=== PATIENT | male | born 1955 | race Native Hawaiian/Other Pacific Islander ===

== ENCOUNTER 2017-08-18 13:02 | Emergency (ER) | payer OTHER ==
[2017-08-18] MEDS ORDERED: Lactated Ringer's 500 ML IV SCH (14:00)
--- NOTE | 2017-08-18 14:01 | ED PDOC ---
Syncope/Near Syncope/Dizziness Time Seen by Provider: 08/18/17 13:44 Chief Complaint (Nursing): Dizziness/Lightheaded Chief Complaint (Provider): Dizziness History Per: Patient History/Exam Limitations: no limitations Onset/Duration Of Symptoms: Days (x2 weeks) Current Symptoms Are (Timing): Intermittent Episodes Associated Symptoms Preceding Syncopal Episode: No Predromal Symptoms (Sudden Onset) Seizure Or Post-ictal Symptoms: None Fall Associated With With Symptoms: No Additional Complaint(s): Leif Gerardo is a 61 year old male, with a past medical history of hypertension and hypercholesterolemia, who presents to the emergency department complaining of intermittent episodes of dizziness onset for x2 weeks. Patient states symptoms resolve x2 hrs after taking Xanax. He saw Dr. Erickson x2 weeks ago, had an MRI done but doesn't know results yet, and has an appointment scheduled on Aug 31. Patient has been compliant with blood pressure medications. He denies room spinning sensation, fever, chills, shortness of breath, chest pain, headache, numbness or weakness. No further medical complaints. PMD: Ryan Erickson Past Medical History Reviewed: Historical Data, Nursing Documentation, Vital Signs Vital Signs: Last Vital Signs Temp 98.0 F 08/18/17 13:22 Pulse 80 08/18/17 13:22 Resp 16 08/18/17 13:22 BP 130/90 08/18/17 13:22 Pulse Ox 95 08/18/17 13:22 - Medical History PMH: Anxiety, HTN, Hypercholesterolemia - Surgical History Surgical History: No Surg Hx - Family History Family History: States: Unknown Family Hx - Home Medications Home Medications: Ambulatory Orders Medication Instructions Recorded Allopurinol [Zyloprim] 300 mg PO DAILY 03/14/15 Alprazolam [Xanax] 0.25 mg PO PRN PRN 03/14/15 Dutasteride [Avodart] 0.5 mg SL DAILY 03/14/15 Losartan [Cozaar] 100 mg PO DAILY 03/14/15 Metoprolol Tartrate [Lopressor] 100 mg PO BID 03/14/15 Tamsulosin [Flomax] 0.4 mg PO DAILY 03/14/15 - Allergies Allergies/Adverse Reactions: Allergies Allergy/AdvReac Type Severity Reaction Status Date / Time No Known Allergies Allergy Verified 03/13/15 20:38 Review of Systems ROS Statement: Except As Marked, All Systems Reviewed And Found Negative Constitutional: Negative for: Fever, Chills Cardiovascular: Negative for: Chest Pain Respiratory: Negative for: Shortness of Breath Neurological: Positive for: Dizziness. Negative for: Weakness, Numbness, Headache Physical Exam - Reviewed Nursing Documentation Reviewed: Yes Vital Signs Reviewed: Yes - Physical Exam Appears: Positive for: Well, Non-toxic, No Acute Distress Head Exam: Positive for: ATRAUMATIC, NORMAL INSPECTION, NORMOCEPHALIC Skin: Positive for: Normal Color, Warm, Dry Eye Exam: Positive for: Normal appearance, EOMI, PERRL ENT: Positive for: Normal ENT Inspection. Negative for: Nasal Congestion Neck: Positive for: Painless ROM, Supple Cardiovascular/Chest: Positive for: Regular Rate, Rhythm. Negative for: Murmur Respiratory: Positive for: Normal Breath Sounds (clear b/l). Negative for: Respiratory Distress Gastrointestinal/Abdominal: Positive for: Normal Exam, Soft. Negative for: Tenderness, Guarding, Rebound Back: Positive for: Normal Inspection. Negative for: L CVA Tenderness, R CVA Tenderness, Vertebral Tenderness Extremity: Positive for: Normal ROM. Negative for: Tenderness, Deformity, Swelling Neurologic/Psych: Positive for: Alert, career discovery teacher II-XII, Oriented (x3), Gait (steady) . Negative for: Motor/Sensory Deficits, Aphasia, Facial Droop - Laboratory Results Result Diagrams: 08/18/17 15:18 08/18/17 15:18 Interpretation Of Abn Labs: no acute - ECG O2 Sat by Pulse Oximetry: 95 (RA) Pulse Ox Interpretation: Normal - CT Scan/US ct Other Rad Studies (CT/US): Read By Radiologist Other Rad Interpretation: no acute - Progress ED Course And Treament: 1831: Spoke with Dr. Erickson. Pt. well known to him. Had MRI already and no acute findings. Wants pt. to fu with him tomorrow. Dc. AAOx3. Pain free. Tolerated PO. No dizziness and ambulated with no issues. Medical Decision Making Medical Decision Making: Initial Impression: dizziness Initial Plan: --Head w/o contrast [CT] --EKG --CMP --Troponin I --CBC w/ differential --PTT --PT --Antivert 25mg PO --Lactated ringers 500 ml IV 100 mls/hr --Reevaluation 14:[address] FINDINGS: HEMORRHAGE: No acute parenchymal, subarachnoid or extra-axial hemorrhage. BRAIN: No evidence of large acute infarct. Tiny densities both the basal nuclei likely representing small bilateral basal nuclei calcifications. . No obvious parenchymal nor extra-axial mass or collection is identified on this noncontrast study. Minor vascular calcifications both carotid siphons. VENTRICLES: No obstructive hydrocephalus. CALVARIUM: There are no acute calvarial fractures. PARANASAL SINUSES: Minimal mucosal thickening seen within a few ethmoid air cells extending superiorly into the frontal sinus MASTOID AIR CELLS: Unremarkable as visualized. No inflammatory changes. OTHER FINDINGS: Bilateral pinna calcifications again seen, likely related to old trauma IMPRESSION: No acute intracranial hemorrhage. Scribe Attestation: Documented by Tate Mahajan, acting as a scribe for Fransicso Fletcher MD Provider Scribe Attestation: All medical record entries made by the Scribe were at my direction and personally dictated by me. I have reviewed the chart and agree that the record accurately reflects my personal performance of the history, physical exam, medical decision making, and the department course for this patient. I have also personally directed, reviewed, and agree with the discharge instructions and disposition. Disposition - Clinical Impression Clinical Impression: Dizziness - Patient ED Disposition Is Patient to be Admitted: No Counseled Patient/Family Regarding: Studies Performed, Diagnosis, Need For Followup - Disposition Referrals: Ryan Erickson MD [Family Provider] - 08/19/17 Disposition: Routine/Home Disposition Time: 18:33 Condition: STABLE Additional Instructions: Return if not better in 3 days. Instructions: Dizziness, Nonvertigo, (DC)
--- NOTE | 2017-08-18 14:42 | CT ---
PROCEDURE: CT scan brain dated 08/18/2017. HISTORY: Headache. COMPARISON: Comparison made with prior CT scan of the brain dated 03/13/2015 TECHNIQUE: Axial computed tomography images were obtained through the head/brain without intravenous contrast. Radiation dose: Total exam DLP = 1003.56 mGy-cm. This CT exam was performed using one or more of the following dose reduction techniques: Automated exposure control, adjustment of the mA and/or kV according to patient size, and/or use of iterative reconstruction technique. FINDINGS: HEMORRHAGE: No acute parenchymal, subarachnoid or extra-axial hemorrhage. BRAIN: No evidence of large acute infarct. Tiny densities both the basal nuclei likely representing small bilateral basal nuclei calcifications. . No obvious parenchymal nor extra-axial mass or collection is identified on this noncontrast study. Minor vascular calcifications both carotid siphons. VENTRICLES: No obstructive hydrocephalus. CALVARIUM: There are no acute calvarial fractures. PARANASAL SINUSES: Minimal mucosal thickening seen within a few ethmoid air cells extending superiorly into the frontal sinus MASTOID AIR CELLS: Unremarkable as visualized. No inflammatory changes. OTHER FINDINGS: Bilateral pinna calcifications again seen, likely related to old trauma IMPRESSION: No acute intracranial hemorrhage.
[2017-08-18 15:35] LABS: BASO # 0.1 K/uL (0.0-0.2); BASO % 1.1 % (0.0-2.0); EOS # 0.2 K/uL (0.0-0.7); EOS % 3.8 % (0.0-4.0); HEMOGLOBIN 14.7 g/dL (12.0-18.0); LYMPH # 2.1 K/uL (1.0-4.3); LYMPH % 31.8 % (20.0-40.0); MEAN CELL VOLUME 89.7 fl (80.0-94.0); MEAN CORPUSCULAR HEMOGLOBIN 29.7 pg (27.0-31.0); MEAN CORPUSCULAR HGB CONC 33.1 g/dL (33.0-37.0); MONO # 0.8 K/uL (0.0-0.8); NEUT # 3.4 K/uL (1.8-7.0); NEUT % 51.3 % (50.0-75.0); NRBC % 0.1 % (0.0-0.0); RBC 4.94 Mil/uL (4.40-5.90); RED CELL DISTRIBUTION WIDTH 13.7 % (11.5-14.5); WHITE BLOOD COUNT 6.6 K/uL (4.8-10.8)
[2017-08-18 15:40] VITALS: RESP 18
[2017-08-18 15:46] LABS: ALB/GLOB RATIO 1.1 (1.0-2.1); ALBUMIN 4.1 g/dL (3.5-5.0); ALT/SGPT 47 U/L (21-72); AST/SGOT 38 U/L (17-59); BLOOD UREA NITROGEN 20 mg/dl (9-20); CALCIUM 9.3 mg/dL (8.4-10.2); GFR AFRICAN-AMERICAN > 60; GFR NON-AFRICAN AMERICAN > 60
[2017-08-18 16:21] LABS: PARTIAL THROMBOPLASTIN TIME 31.6 Seconds (25.6-37.1); PROTHROMBIN TIME 11.2 Seconds (9.8-13.1)
[2017-08-18 18:55] VITALS: BP 118/75; PULSE 84; TEMP 97.9; O2SAT 100
--- NOTE | 2017-08-19 19:13 | CARD ---
APPROVED REPORT EKG Measurement Heart [id number] <Conclusion> Normal sinus rhythm Nonspecific T wave abnormality Abnormal ECG
== END 2017-08-18 18:58 | disposition home or self-care (01) ==
LOC: H.ER 13:02
DX: R42 Dizziness and giddiness (principal); E78.00 Pure hypercholesterolemia, unspecified; F41.9 Anxiety disorder, unspecified; I10 Essential (primary) hypertension
CPT/HCPCS: 70450; 80053; 84484; 85025; 85610; 85730; 93005; 99284; J7120

== ENCOUNTER 2018-07-14 06:52 | Day surgery (SDC) | payer OTHER ==
[2018-07-03 11:58] VITALS: BMI 24.0
[2018-07-14] MEDS ORDERED: ceFAZolin IV 1 gm in Dextrose 2 GM/100 ML BAG IVPB ONE (08:18)
[2018-07-14] MEDS ORDERED: Lidocaine 1% w Epi 1:100,000 Inj ONE (08:18)
[2018-07-14] MEDS ORDERED: EPINEPHrine 1:1000 Nasal Sol(30mL) ONE (08:19)
--- NOTE | 2018-07-14 09:04 | CP.SDSHP ---
Same Day Surgery H & P - History Proposed Procedure: Left shoulder arthroscopy, partial rotator cuff repair, labral repair, acromioplasty, synovectomy, related procedures Pre-Op Diagnosis: Left shoulder full thickness traumatic RC tear. SLAP tear. synovitis - Previous Medical/Surgical History Cardiac: Hypertension Previous Surgical History: rectal surgery - Allergies Allergies: Allergies No Known Allergies Allergy (Verified 03/13/15 20:38) - Physical Exam Vital Signs: Vital Signs 07/14/18 07/14/18 08:53 08:58 Temperature 97.9 F Pulse Rate 64 65 Respiratory 18 Rate Blood Pressure 136/97 H O2 Sat by Pulse 97 Oximetry Mental Status: Alert & Oriented x3 Heart: WNL Lungs: WNL GI: WNL (medical clearance Dr. Erickson on chart) - {Optional Preform as Required} Ortho: Other (limited ROM left shoulder, sensation intact, +radial pulse) Other Pertinent Findings: MRI and labs on chart, reviewed - Impression Impression: 62M with left shoulder rotator cuff tear and findings as above for arthroscopy Pt. Evaluated Today:Candidate for Anesthesia & Procedure: Yes - Date & Time Date: 07/14/18 Time: 09:04 Short Stay Discharge - Short Stay Discharge Admitting Diagnosis/Reason for Visit: S46.811, M75.42, M65.812 Disposition: HOME/ ROUTINE Past Patient History - Infectious Disease Hx of Infectious Diseases: None - Past Medical History & Family History Past Medical History?: Yes Past Family History: Reviewed and not pertinent - Past Social History Smoking Status: Former Smoker - CARDIAC Hx Cardiac Disorders: Yes Hx Hypertension: Yes - PULMONARY Hx Respiratory Disorders: No - NEUROLOGICAL Hx Neurological Disorder: No - HEENT Hx HEENT Problems: Yes Other/Comment: dry eye - RENAL Hx Chronic Kidney Disease: No - ENDOCRINE/METABOLIC Hx Endocrine Disorders: No - HEMATOLOGICAL/ONCOLOGICAL Hx Blood Disorders: No - INTEGUMENTARY Hx Dermatological Problems: No - MUSCULOSKELETAL/RHEUMATOLOGICAL Hx Musculoskeletal Disorders: No Hx Arthritis: Yes Hx Gout: Yes Other/Comment: hx of gout - GASTROINTESTINAL Hx Gastrointestinal Disorders: No - GENITOURINARY/GYNECOLOGICAL Hx Genitourinary Disorders: No - PSYCHIATRIC Hx Emotional Abuse: No Hx Physical Abuse: No - SURGICAL HISTORY Hx Surgeries: Yes Other/Comment: 2010 Cyst removed from rectum - ANESTHESIA Hx Anesthesia: Yes Hx Anesthesia Reactions: No Hx Malignant Hyperthermia: No Has any member of the family had a problem w/ anesthesia?: No
[2018-07-14] MEDS ORDERED: Lactated Ringer's 1,000 ML IV ONE ×2 (09:23→11:27)
[2018-07-14] MEDS ORDERED: Propofol 10 mg/ml Inj (20 ML) ONE (09:49)
[2018-07-14] MEDS ORDERED: Midazolam 2 MG/2 ML VIAL ONE (09:49)
[2018-07-14] MEDS ORDERED: Lidocaine 1% 5ml Abboject ONE (09:49)
[2018-07-14] MEDS ORDERED: Rocuronium 10 mg/ml (5 ml) ONE (09:49)
[2018-07-14] MEDS ORDERED: Lidocaine 4% (Laryng-O-Jet) Kit MM ONE (09:49)
[2018-07-14] MEDS ORDERED: EPINEPHrine 1 mg/ml (1:1000) Inj ONE ×2 (09:52→09:53)
[2018-07-14] MEDS ORDERED: Ropivacaine 0.5% 30ML IV ONE (09:53)
[2018-07-14] MEDS ORDERED: Succinylcholine 200 mg/10 ml Inj IV ONE (09:54)
[2018-07-14] MEDS ORDERED: Sodium Chloride 0.9% 10 ML IV ONE (10:38)
[2018-07-14] MEDS ORDERED: ePHEDrine 50 mg/ml Inj ONE (10:38)
[2018-07-14] MEDS ORDERED: Lidocaine 1% w Epi 1:100,000 Inj INJ ONE (11:08)
[2018-07-14] MEDS ORDERED: Oxycodone/Acetaminophen 5/325 mg Tab PO PRN (12:04)
--- NOTE | 2018-07-14 12:39 | PCM.SURG1 ---
Surgeon's Initial Post Op Note - Surgeon's Notes Surgeon: Bindu Middleton MD Coagulating Bath Mixer: Madeline Navarrete PA-C Type of Anesthesia: General Endo Pre-Operative Diagnosis: Left shoulder complete retracted RTC tear Operative Findings: see op report Post-Operative Diagnosis: same as pre-op dx Operation Performed: Left shoulder arthroscopy, double row rotator cuff repair, subacromial decompression Specimen/Specimens Removed: none Estimated Blood Loss: EBL {In ML}: 4 Date of Surgery/Procedure: 07/14/18 Time of Surgery/Procedure: 11:00
[2018-07-14] MEDS ORDERED: HYDROmorphone 0.5 mg/0.5 ml ISec IVP PRN (12:44)
[2018-07-14] MEDS ORDERED: Lactated Ringer's 1,000 ML IV SCH (12:45)
--- NOTE | 2018-07-14 12:49 | PCM.ANESB1 ---
Interscalene Block - Brachial Plexus Date of Procedure: 07/14/18 Anesthesiologist: Dr. Kyle Pre-Procedure Diagnosis: Torn rotator cuff left shoulder Post-Procedure Diagnosis: Torn rotator cuff left shoulder Procedure Performed: Interscalene Block of Brachial Plexus Left - Procedure Interscalene Block of Brachial Plexus: This procedure was explained to the patient that it is for post-operative pain management. Consent was obtained after a thorough discussion with the patient regarding the benefits and possible complications of local anesthetic block of the Brachial Plexus at the Interscalene area. The patient was brought to the Operating Room and standard monitors were applied. Time out was held with the circulating nurse to confirm the correct surgery and appropriate block. After applying Oxygen by nasal cannula and administering IV Sedation, the patient's head was gently rotated away from the left operative shoulder and the anterior scalene groove was carefully palpated. The ultrasound transducer was then applied to the skin in the transverse plane and the brachial plexus was visualized lateral to the carotid artery and in between the anterior and middle scalene muscles. After identification,the anterior lateral portion of the neck was prepped with Betadine solution three times and Lidocaine 1% was injected subcutaneously for topical analgesia. At this point, a # 22 gauge Stimuplex 2 inches insulated needle was inserted into the interscalene groove and directed in a caudal and midline direction. The needle was inserted lateral to the ultrasound transducer in-plane towards the brachial plexus in a [id number] direction. Needle advancement was performed carefully under direct ultrasound visualization. Nerve stimulator was used and twitched of the affected extremity including the hand brachialis muscles, biceps and the deltoid was obtained at a current of 0.3MA. After repeated negative aspiration, 5cc of 0.5% Ropivacaine were injected and this was followed with 15 cc of 0.5% Ropivacaine. Under ultrasound guidance the local anesthetics were observed surrounding the roots of the brachial plexus. The needle was removed intact and sterile dressing was applied. The patient had stable vital signs, was conscious and in no apparent distress. The patient tolerated the interscalene block of the bracheal plexus well with stable vital signs and was prepared for subsequent surgery.
[2018-07-14 14:58] VITALS: O2SAT 97
[2018-07-14 16:01] VITALS: BP 138/79; PULSE 68; RESP 18; TEMP 98
--- NOTE | 2018-07-14 18:29 | OP ---
PROCEDURE DATE: 07/14/2018 ATTENDING PHYSICIAN: Bindu Middleton MD DATA CENTER MANAGER: Madeline Navarrete PA-C PREOPERATIVE DIAGNOSES: 1. 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 2. Synovitis. 3. Impingement. POSTOPERATIVE DIAGNOSES: 1. Left shoulder synovitis. 2. Full thickness supraspinatus and infraspinatus chronic retracted tear. 3. Capsular adhesions. 4. Impingement. 5. Colitis. 6. Grade 2 chondromalacia humeral head. PROCEDURE: 1. Left shoulder arthroscopic double row rotator cuff repair with margin convergence. 2. Anterior capsular lysis of adhesions. 3. Complete synovectomy. 4. Subacromial decompression with acromioplasty. 5. Chondroplasty of humeral had. ANESTHESIA: General interscalene block. ESTIMATED BLOOD LOSS: 10 mL. SPECIMENS: None. COMPLICATIONS: None. CLOSURE: Primary. FLUIDS: See anesthesia sheet. ANTIBIOTICS: See anesthesia sheet. INDICATIONS: After failing a course of nonoperative therapy, the patient elected to undergo the above procedures. In the office the risks and possible complications of the shoulder arthroscopy were discussed in detail with the patient. These risks include, but are not limited to, continued pain, lack of motion, infection, vascular injury, and nerve injury including axillary nerve dysfunction, reflex sympathetic dystrophy, compartment syndrome, limb loss, and . The patient expressed an understanding of the risks and possible benefits of the procedure, and was also made aware of the alternatives to surgery. An informed consent was obtained, and was checked immediately preop. Procedure 1: The patient was correctly identified in the holding area and the left shoulder was marked with the surgeon's initials. The patient was transported to the operating room and placed in the supine position and general anesthesia and regional interscalene block was used. A preoperative orthopedic examination revealed a passive range of motion of 260 degrees of forward elevation, 50 degrees of external rotation, and 130 degrees of abduction. Stability examination revealed no instability. Procedure 2: The patient was then placed in a beach chair position utilizing the beach chair positioning device. The patient's head was stabilized and the indicated upper extremity was prepped and draped in the standard surgical fashion. The anatomic structures were outlined with a skin marker, and 1% lidocaine with epinephrine was injected into the posterior, anterior, and lateral portal areas. A #21-gauge spinal needle was placed in the glenohumeral joint from the posterior portal and 10 mL of sterile saline was injected into the glenohumeral joint. Return of fluid indicated correct needle placement into the joint. The needle was then withdrawn and a #11 blade was used to make a 1-cm incision at the posterior portal site. Next, the arthroscopic blunt trocar was inserted into the glenohumeral joint. A #21-gauge spinal needle was placed through the anterior rotator interval, and the anterior portal was made with a #11 blade after the spinal needle was withdrawn. A 7-mm cannula was then inserted after the skin incision was made and the arthroscopic probe was then used to examine the internal structures of the glenohumeral joint. With the shoulder in abducted and externally rotated position, the articular surface of the rotator cuff was visualized. The arthroscope and probe were then switched from posterior to anterior. The posterior labrum, posterior capsule, and biceps anchor reflection was then inspected with the arthroscope in the anterior portal position. Examination of the glenohumeral joint revealed: 1. Extensive synovitis. 2. Capsular adhesions. 3. Complete chronic retracted supraspinatus and infraspinatus tear. 4. Degenerative labral tear. Using the probe, the labrum was circumferentially assessed for tear. Tears were note at anterior and posterior superior labrum. Using the 4.0 motorized shaver and radiofrequency probe, the torn edges of the labrum were debrided until stable rim, preventing any further propagation. The radiofrequency device was introduced through the anterior portal and a radiofrequency anterior capsular rotator interval lysis of adhesions was performed. The anterior capsule was released to optimize range of motion. The radiofrequency device was used to provide hemostasis during this procedure. After the lysis of adhesions, passive range of motion measured 180 degrees of forward elevation, 60 degrees of external rotation, and 150 degrees of abduction. The full radius shaver was used to mechanically debride loose chondral edges of the side of the humeral head, to a stable border. Extreme care was taken to not disrupt the adjacent chondral surface. The edge of the debrided area was probed to ensure chondral stability. Excessive glenohumeral synovitis was cleared with a 4.0 mm full radius shaver. The hypertrophic, erythematous synovium was resected. Hemostasis was maintained with the radiofrequency device. At this point, the arthroscope was withdrawn from the glenohumeral joint and subacromial space was then entered using a blunt trocar. Gentle resistance sweeping against the coracoacromial ligament confirmed proper placement of the sheath and the arthroscope was inserted. A 1-cm incision was made at the inferolateral acromial area to create the lateral portal. Examination of the subacromial space revealed: 1. Bursitis. 2. Impingement. Visualization of the subacromial space was difficult due to excessive bursitis. A bursectomy was performed using a combination of radiofrequency device as well as a 4.0-mm full radius motorized shaver. The soft tissue on the undersurface of the acromion was debrided utilizing the 4.0-mm full radius shaver and the radiofrequency device was used for hemostasis. At this point, the coracoacromial ligament was released with the radiofrequency device and the acromial branch of the thoracoacromial artery was coagulated with the same instrument. Subacromial decompression was performed with a 4.0-mm conical mike using both the medial portal and the "cutting-block" precision acromioplasty technique from the posterior portal. The undersurface of the acromion was resected to a flat, smooth surface to allow unrestricted excursion of the rotator cuff. After adequate subacromial decompression, attention was then turned to the rotator cuff tear, which was easily visualized after adequate bursectomy had been performed. An auxiliary lateral portal was placed 2 cm posterior to the original lateral portal, after a correct "-man's angle" was determined using a transdeltoid 21 gauge spinal needle. Arthroscopic soft tissue releases were performed using an elevator at the coracohumeral ligament insertion and superior glenoid to free up the rotator cuff to provide adequate excursion to support a repair to the greater tuberosity. Next, the greater tuberosity was gently debrided with a combination of the 4.0 mm straight shaver and radiofrequency device, and the bone was denuded to a bleeding surface using the 4.0-mm mike. The lateral margin of the rotator cuff tear was debrided to a smooth and stable tendon surface using the 4.0-mm shaver. Two 4.5-mm Arthrex corkscrew suture anchors were placed with the proper "-man's angle" into the greater tuberosity, and a mattress suture from each anchor was passed through supraspinatus 10 mm medial to the torn edge. These anchors formed the medial row of the double row repair. The arm was abducted to 70 degrees, and the leading edge of the cuff was drawn to its proper insertion on the greater tuberosity. The #2 FiberWire mattress sutures were tied with standard arthroscopic knot tying techniques - Ihsan knots and half hitches using a knot pusher. The remaining sutures were secured to the tuberosity with two 4.5-mm PushLock absorbable anchors, which were placed with standard technique into the lateral aspect of the greater tuberosity approximately 1 cm lateral to the medial row anchors. One suture strand from each knot was crossed to the diagonal PushLock anchor along with the suture strand from the corresponding anchor directly medial. This linking of the medial and lateral row formed a "suture bridge" rotator cuff repair. The ends of the remaining sutures were then cut. The shoulder was put through a passive ROM, and the rotator cuff repair was noted to be stable through a ROM of 130/50. No prominence of the suture knots or of rotator cuff tissue was noted to impinge during abduction and internal rotation. The subacromial space was then irrigated with sterile saline, and closure was instituted with sutures. A dressing was placed consisting of Xeroform, 4x4's, ABD pads, and tape. The patient was placed in a sling with an ABD pad in the axilla. The patient was then placed in a supine position and extubated without incident. The patient was transferred to the recovery room in stable condition, having tolerated the procedure well. Postoperatively, the patient will be maintained in an abduction sling, also provided with my rehab protocol, defining the restriction and sling use for 6-8 weeks. Followup in 6 to 8 weeks. The sponge and needle count at the close of the case was correct. The attending surgeon was scrubbed and present for all the critical portions of the case, including all of the intra-articular arthroscopic procedures. During this procedure, I was assisted by Madeline Navarrete PA-C, who assisted in positioning the patient on the operating room table as well as transferring the patient from the operating room table to the recovery room stretcher. In addition, Madeline Navarrete PA-C, assisted me during the actual operative procedure by positioning the patient's extremity to allow for easier arthroscopic access to all areas of the joint. The presence of Madeline Navarrete PA-C, as my operative veterinary assistant, was medically necessary to ensure the utmost safety of the patient in the pre, intra-, and postoperative periods. Bindu Middleton MD
== END 2018-07-14 16:20 | disposition home or self-care (01) ==
LOC: H.OPSURG 06:52
PROVIDERS: ATTEND Orthopaedic Surgery
DX: M65.812 Other synovitis and tenosynovitis, left shoulder (principal); K52.9 Noninfective gastroenteritis and colitis, unspecified; Z87.891 Personal history of nicotine dependence; I10 Essential (primary) hypertension; M75.102 Unspecified rotator cuff tear or rupture of left shoulder, not specified as traumatic
CPT/HCPCS: 29823; 29826; 29827; 87070; J0171; J0330; J0690; J2250; J2704; J2765; J3010; J7120

== ENCOUNTER 2018-10-31 07:12 | Day surgery (SDC) | payer MEDICARE, OTHER ==
[2018-10-31 08:27] VITALS: BMI 23.6
[2018-10-31 08:53] VITALS: RESP 18
[2018-10-31] MEDS ORDERED: Lidocaine 1% w Epi 1:100,000 Inj ONE (11:39)
[2018-10-31] MEDS ORDERED: EPINEPHrine 1 mg/ml (1:1000) Inj ONE ×2 (11:39→15:22)
[2018-10-31] MEDS ORDERED: Bupivacaine 0.5% Inj(30mL) ONE (11:39)
[2018-10-31] MEDS ORDERED: Ropivacaine 0.5% 30ML IV ONE (11:57)
[2018-10-31] MEDS ORDERED: Propofol 10 mg/ml Inj (20 ML) ONE (11:58)
[2018-10-31] MEDS ORDERED: Midazolam 2 MG/2 ML VIAL ONE (11:58)
[2018-10-31] MEDS ORDERED: ePHEDrine 50 mg/ml Inj ONE (12:35)
[2018-10-31] MEDS ORDERED: Dexamethasone 4 mg/1 ml ONE (14:31)
--- NOTE | 2018-10-31 14:34 | PCM.ANESB1 ---
Interscalene Block - Brachial Plexus Date of Procedure: 10/31/18 Anesthesiologist: lFaco Pre-Procedure Diagnosis: Left rotator cuff tear Post-Procedure Diagnosis: Left rotator cuff tear Procedure Performed: Interscalene Block of Brachial Plexus Left - Procedure Interscalene Block of Brachial Plexus: This procedure was explained to the patient that it is for post-operative pain m anagement. Consent was obtained after a thorough discussion with the patient regarding the benefits and possible complications of local anesthetic block of the Brachial Plexus at the Interscalene area. The patient was brought to the Operating Room and standard monitors were applied. Time out was held with the circulating nurse to confirm the correct surgery and appropriate block. After applying Oxygen by nasal cannula and administering IV Sedation, the patient's head was gently rotated away from the operative shoulder and the anterior scalene groove was carefully palpated. The ultrasound transducer was then applied to the skin in the transverse plane and the brachial plexus was visualized lateral to the carotid artery and in between the anterior and middle scalene muscles. After identification,the anterior lateral portion of the neck was prepped with Betadine solution three times and Lidocaine 1% was injected subcutaneously for topical analgesia. At this point, a # 22 gauge Stimuplex 2 inches insulated needle was inserted into the interscalene groove and directed in a caudal and midline direction. The needle was inserted lateral to the ultrasound transducer in-plane towards the brachial plexus in a [id number] direction. Needle advancement was performed carefully under direct ultrasound visualization. Nerve stimulator was used and twitched of the affected extremity including the hand brachialis muscles, biceps and the deltoid was obtained at a current of _0.5_MA. After repeated negative aspiration,__20__cc of_0.5%_,_ropivicaine__were injected_. Under ultrasound guidance the local anesthetics were observed surrounding the roots of the brachial plexus. The needle was removed intact and sterile dressing was applied. The patient had stable vital signs, was conscious and in no apparent distress. The patient tolerated the interscalene block of the bracheal plexus well with stable vital signs and was prepared for subsequent surgery.
[2018-10-31] MEDS ORDERED: Lactated Ringer's 1,000 ML IV ONE (14:53)
[2018-10-31] MEDS ORDERED: HYDROmorphone 0.5 mg/0.5 ml ISec IVP PRN (16:05)
[2018-10-31] MEDS ORDERED: Dexamethasone 4 mg/1 ml IVP PRN (16:05)
--- NOTE | 2018-10-31 16:08 | PCM.SURG1 ---
Surgeon's Initial Post Op Note - Surgeon's Notes Surgeon: Bindu Middleton MD Torch Solderer: Madeline Navarrete PA-C; Iván Zambraon DPM Type of Anesthesia: General LMA Pre-Operative Diagnosis: Left shoulder RTC tear Operative Findings: see op report Post-Operative Diagnosis: same as pre-op dx Operation Performed: Left shoulder revision arthroscopy, SER w/allograft Specimen/Specimens Removed: none Estimated Blood Loss: EBL {In ML}: 5 Date of Surgery/Procedure: 10/31/18 Time of Surgery/Procedure: 13:00
[2018-10-31 18:25] VITALS: O2SAT 97
[2018-10-31 19:12] VITALS: BP 137/98; PULSE 93; TEMP 98
--- NOTE | 2018-11-01 21:42 | OP ---
PROCEDURE DATE: 10/31/2018 ATTENDING PHYSICIAN: Bindu Middleton MD BROOM BUILDER: Madeline Navarrete PA-C PREOPERATIVE DIAGNOSES: 1. Left shoulder re-tearing of the previous rotator cuff repair. 2. Synovitis. 3. Labral tear. POSTOPERATIVE DIAGNOSES: 1. Left shoulder extensive synovitis. 2. Re-tearing of rotator cuff tear. 3. Loose bodies. 4. Anterior, posterior and superior labral tear. 5. 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 6. Capsular adhesions. 7. Bursitis. PROCEDURES: 1. Left shoulder arthroscopic superior capsular reconstruction using allograft. 2. Complete synovectomy. 3. Pancapsular lysis of adhesions. 4. Removal of loose bodies. 5. Extensive labral debridement. 6. Chondroplasty of glenoid and humeral head. 7. Bursectomy. ANESTHESIA TYPE: General and interscalene block. ESTIMATED BLOOD LOSS: 5 mL. SPECIMEN: None. CLOSURE: Primary. FLUIDS: See anesthesia sheet. ANTIBIOTICS: See anesthesia sheet. COMPLICATIONS: None. INDICATIONS: After a detailed conversation, the patient elected to undergo the above procedures. The risks and possible complications of the shoulder arthroscopy were discussed in detail with the patient. These risks include, but are not limited to: continued pain, lack of motion, infection, vascular injury, and nerve injury including axillary nerve dysfunction, reflex sympathetic dystrophy, compartment syndrome, limb loss, and . The patient and/or responsible health proxy expressed an understanding of the risks and possible benefits of the procedure, and was also made aware of the alternatives to surgery. An informed consent was obtained, and was checked immediately pre-op. The patient was correctly identified in the holding area and operative shoulder was marked with the surgeon's initials. The patient was transported to the operating room and placed in the supine position and general anesthesia and regional interscalene block was used, exam under anesthesia. A preoperative orthopedic examination revealed a passive range of motion of 160 degrees of forward elevation, 50 degrees of external rotation, and 50 degrees of internal rotation. Stability examination revealed superior gait. The patient was securely placed in a positioning device. The patient's head was stabilized and the indicated upper extremity was prepped and draped in the standard surgical fashion. The anatomic structures were outlined with a skin marker, and 1% lidocaine with epinephrine was injected into the posterior, anterior, and lateral portal areas. A #11 blade was used to make a 1cm incision at the posterior portal site. Next, the arthroscopic blunt trocar was inserted into the glenohumeral joint. A #21-gauge spinal needle was placed through the anterior rotator interval, and the anterior portal was made with a #11 blade after the spinal needle was withdrawn. A working cannula was then inserted and the arthroscopic probe was used to examine the internal structures of the glenohumeral joint. With the shoulder abducted and externally rotated position, the articular surface of the rotator cuff was visualized. The arthroscope and probe were then switched from posterior to anterior. The posterior labrum, posterior capsule, and biceps anchor reflection was then inspected with the arthroscope in the anterior portal position. Examination of the glenohumeral joint revealed: 1. Extensive synovitis. 2. Diffuse labral tear. 3. Loose bodies. 4. Large, retracted, irreparable supraspinatus tear. 5. Grade II chondromalacia of the glenoid and the humeral head. Excessive glenohumeral synovitis was cleared with a 4.0 mm full radius shaver. The hypertrophic, erythematous synovium was resected, hemostasis was maintained with the radiofrequency device. Using the probe the labrum was circumferentially assessed for tear. Tears were note at superior, anterior, and posterior labrum. Using the motorized shaver and radiofrequency probe, the torn edges of the labrum were debrided until stable rim, preventing any further propagation. The radiofrequency device was introduced through the anterior portal and a radiofrequency anterior capsular rotator interval lysis of adhesions was performed. The anterior capsule was released to optimize range of motion. The radiofrequency device was used to provide hemostasis during this procedure. After the lysis of adhesions, passive range of motion measured 180 degrees of forward elevation, 70 degrees of external rotation, and internal rotation of 70 degrees of abduction. Motorized shaver was used to mechanically debride loose chondral edges of the humeral head and glenoid to a stable border. Extreme care was taken to not disrupt the adjacent chondral surface. The edge of the debrided area was probed to ensure chondral stability. At this point, multiple soft tissue loose bodies were noted in the axillary pouch and subscapularis recess areas. Using the aforementioned arthroscopic portals, loose bodies were removed with arthroscopic techniques including graspers and the shaver. Sub-Acromial Space: At this point, the arthroscope was withdrawn from the glenohumeral joint and subacromial space was then entered using a blunt trocar. Gentle resistance sweeping against the coracoacromial ligament confirmed proper placement of the sheath and the arthroscope was inserted. An incision was made at the inferolateral acromial area to create the lateral portal. Examination of the subacromial space revealed: 1. Extensive bursitis. 2. Retracted irreparable supraspinatus tear. Visualization of the subacromial space was difficult due to excessive bursitis. A bursectomy was performed using a combination of radiofrequency device as well as motorized shaver. Due to previous torn rotator cuff tear, it was reparable. A decision was made to proceed with superior capsular reconstruction. Using the high-speed shaver, extensive resection of remnant of rotator cuff torn tendon was performed to clear out the footprint. The anterior, superior, and posterior margins of the glenoid were debrided to the bleeding bed surface. Using a percutaneous technique, three Arthrex knotless suture anchors were placed in 10 o'clock, 12 o'clock, and 2 o'clock positions. Using the grasper, the previous implant and sutures were removed from the greater tuberosity. On the tuberosity, two additional Arthrex SwiveLock were placed lateral to the articular surface loaded with suture tape. Using the arthroscopic measuring device, the measurements of the graft were made, and on the back table, Arthrex ArthroFLEX dermal block was opened and based on the measurement, it was marked. Next, the suture limbs from the FiberTape and the SutureTaks were placed on the lateral cannula and loaded onto the graft. Using a large PassPort cannula, a graft was placed and tensioned and brought into the joint and secured on the glenoid using the knotless SutureTaks. Next, the FiberTape was secured with additional two SwiveLock anchors using a SutureBridge technique. There was noted to be adequate coverage of the humeral head recreating the supraspinatus tendon. Two additional [id number] sutures were in the dermal graft and infraspinatus for margin convergence. Next, the arm was taken through a range of motion. The patient did not have any superior escape, and the graft was found to be stable throughout the range of motion. The subacromial space was then irrigated with sterile saline, and closure was instituted with sutures and sterile dressing was applied. The patient was extubated without incident, transferred to the recovery room in stable condition, after having tolerated the procedure well. Post-operatively, the patient will be maintained in a abduction sling. Also, provided with my rehab protocol, defining the restriction and sling use for six to eight weeks. The sponge and needle count at the close of the case was correct. The attending surgeon was scrubbed and present for all the critical portions of the case, including all of the intra-articular arthroscopic procedures. During this procedure, I was assisted by Madeline Navarrete PA-C,who assisted in positioning the patient on the operating room table as well as transferring the patient from the operating room table to the recovery room stretcher. In addition, Madeline Navarrete PA-C, assisted me during the actual operative procedure by positioning the patient's extremity to allow for easier arthroscopic access to all areas of the joint. The presence of Madeline Navarrete PA-C, as my operative dental assistant medical assistant was medically necessary to ensure the utmost safety of the patient in the pre, intra-, and post-operative periods. Due to the patient's previous procedure of double-row rotator cuff repair performed in this area, this procedure was more difficult than a standard shoulder arthroscopy. This required extra time during prepping and draping, as well as an extended operative time. Because of the added complexity of the revision nature of this procedure, the length of the case was prolonged by 100%. Bindu Middleton MD
== END 2018-10-31 19:23 | disposition home or self-care (01) ==
LOC: H.OPSURG 07:12
PROVIDERS: ATTEND Orthopaedic Surgery
DX: M65.812 Other synovitis and tenosynovitis, left shoulder (principal); E78.5 Hyperlipidemia, unspecified; I10 Essential (primary) hypertension; K21.9 Gastro-esophageal reflux disease without esophagitis; M75.102 Unspecified rotator cuff tear or rupture of left shoulder, not specified as traumatic; M24.012 Loose body in left shoulder; S43.492A Other sprain of left shoulder joint, initial encounter
CPT/HCPCS: 29819; 29821; 29823; 29825; 36415; 86850; 86900; C1776; J0171; J0690; J1100; J2250; J2405; J2704; J3010; J7030; J7120; Q4100